=== PATIENT | female | born 1965 | race Caucasian/White ===

== ENCOUNTER 2016-09-11 19:00 | Emergency (ER) | payer BC ==
[2016-09-11] MEDS ORDERED: Sodium Chloride 0.9% 10 ML Syringe FLUSH PRN (19:32)
[2016-09-11] MEDS ORDERED: Alum Hydrox/Mag Hydrox/Simeth 15 ML, Lidocaine 2% 15 ML PO ONE ×2 (19:33)
[2016-09-11] MEDS ORDERED: LORazepam 2 MG/ML MDV IVPUSH ONE (19:36)
--- NOTE | 2016-09-11 19:36 | EDM.PDOC ---
ED HISTORY OF PRESENT ILLNESS - General Chief Complaint: Chest Pain Stated Complaint: CHEST TIGHTENING Time Seen by Provider: 09/11/16 19:26 Source: Reports: Patient, RN notes reviewed History Limitations: Reports: No limitations - History of Present Illness INITIAL COMMENTS - FREE TEXT/NARRATIVE: 50-year-old female presents emergency department day complaint of chest heaviness, she has a known history of coronary artery disease recently had a non -STEMI 2 months prior with stent one vessel. For this particular event she states she's had chest heaviness epigastric region with burning into her chest, it lasts less than a minute will come on at random times no relationship to exertion does feel short of breath with the event but this quickly resolves she is no relationship to food - Related Data Allergies/ADRs: Allergies Allergy/AdvReac Type Severity Reaction Status Date / Time Penicillins Allergy Muscle Verified 09/11/16 19:12 Aches Home Meds: Home Meds Ibuprofen [Motrin] 800 mg PO QID PRN 07/12/13 [History] Aspirin [Aspirin] 81 mg PO DAILY 09/11/16 [History] Lisinopril 2.5 mg PO BID 09/11/16 [History] Metoprolol Tartrate 12.5 mg PO BID 09/11/16 [History] Ticagrelor [Brilinta] 90 mg PO BID 09/11/16 [History] atorvaSTATin [Lipitor] 40 mg PO BEDTIME 09/11/16 [History] Past Medical History HEENT History: Reports: Impaired vision Cardiovascular History: Reports: CAD, [place], Stents, Other (see below) Other Cardiovascular History: 1 stent placed bilateral legs. 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: Musculoskeletal History: Reports: Arthritis, Fracture, Other (see below) Other Musculoskeletal History: Broke right arm, tore rotator cuff, nerve damage Psychiatric History: Reports: Anxiety, Depression - Infectious Disease History Infectious Disease History: Reports: Chicken pox - Past Surgical History HEENT Surgical History: Reports: None Cardiovascular Surgical History: Reports: Coronary artery stent GI Surgical History: Reports: Appendectomy Female Surgical History: Reports: Tubal ligation, Other (see below) Other Female Surgeries/Procedures: reversed tubal Musculoskeletal Surgical History: Reports: None Social & Family History - Tobacco Use Smoking Status *Q: Current Every Day Smoker Years of Tobacco use: 35 Packs/Tins Daily: 0.5 - Caffeine Use Caffeine Use: Reports: Coffee - Alcohol Use Days Per Week of Alcohol Use: 0 - Recreational Drug Use Recreational Drug Use: No ED ROS GENERAL - Review of Systems Review Of Systems: See Below Constitutional: Reports: no symptoms HEENT: Reports: No symptoms Respiratory: Reports: Shortness of Breath Cardiovascular: Reports: Chest pain GI/Abdominal: Reports: No symptoms : Reports: no symptoms ED EXAM, GENERAL - Physical Exam Exam: See Below Free Text/Narrative:: General: Female, not in any distress, alert and oriented x3 HEENT: head is atraumatic normocephalic, eyes pupils equal round reactive to light, sclera clear no conjunctivitis appreciated. Ears tympanic membranes clear and wong landmarks and light reflex are present bilaterally canals are clear. Nose no septal deviation, nares are clear, no blood present. Mouth mucosa is moist and pink no erythema or exudate noted in soft palate, tongue is midline uvula is midline, dentition is intact. Neck: Supple no thyromegaly no tracheal deviation. Nodes: Cervical nodes subclavicular nodes nontender no palpable lymphadenopathy noted. Lungs: clear to auscultation bilaterally with symmetrical respirations, no adventitious noise appreciated. CV: Regular rate and rhythm S1 and S2 appreciated no murmurs rubs or gallops noted. Abdomen: Soft, nontender, no palpable masses or organomegaly appreciated, no distention no guarding bowel sounds are present, . Neuro: Cranial nerves II through XII grossly intact Skin: Warm and dry, intact Extremities: No lower extremity edema appreciated . Course - Vital Signs Last Recorded V/S: Last Vital Signs Temp 96.7 F 09/11/16 20:26 Pulse 70 09/11/16 20:26 Resp 17 09/11/16 20:26 BP 110/68 09/11/16 20:26 Pulse Ox 96 09/11/16 20:26 - Orders/Labs/Meds Orders: Active Orders 24 hr Category Date Time Status Cardiac Monitoring [RC] .As Directed Care 09/11/16 19:32 Active EKG Documentation Completion [RC] ASDIRECTED Care 09/11/16 19:33 Active Peripheral IV Care [RC] . DIRECTED Care 09/11/16 19:33 Active Chest 1V Frontal [CR] Stat Exams 09/11/16 19:33 Taken Sodium Chloride 0.9% [Saline Flush] Med 09/11/16 19:32 Active 10 ml FLUSH ASDIRECTED PRN Peripheral IV Insertion Adult [OM.PC] Stat Oth 09/11/16 19:32 Ordered Saline Lock Insert [OM.PC] Stat Oth 09/11/16 19:32 Ordered EKG 12 Lead [EK] Stat Ther 09/11/16 19:33 Ordered Medication Orders Sodium Chloride (Saline Flush) 10 ml FLUSH ASDIRECTED PRN PRN Reason: Keep Vein Open Last Admin: 09/11/16 19:51 Dose: 10 ml Labs: Laboratory Tests 09/11/16 09/11/16 Range/Units 19:43 19:43 WBC 8.1 (4.5-11.0) K/uL RBC 4.25 (3.30-5.50) M/uL Hgb 13.2 (12.0-15.0) g/dL Hct 38.0 (36.0-48.0) % MCV 89 (80-98) fL MCH 31 (27-31) pg MCHC 35 (32-36) % Plt Count 254 (150-400) K/uL Neut % (Auto) 57 (36-66) % Lymph % (Auto) 29 (24-44) % [place] % (Auto) 12 H (2-6) % Eos % (Auto) 2 (2-4) % Baso % (Auto) 1 (0-1) % Sodium 141 (140-148) mmol/L Potassium 4.0 (3.6-5.2) mmol/L Chloride 107 (100-108) mmol/L Carbon Dioxide 28 (21-32) mmol/L Anion Gap 6.5 (5.0-14.0) mmol/L BUN 12 (7-18) mg/dL Creatinine 0.8 (0.6-1.0) mg/dL Est Cr Clr Drug Dosing 75.70 mL/min Estimated GFR (MDRD) > 60 (>60) Glucose 103 (74-106) mg/dL Calcium 8.7 (8.5-10.1) mg/dL Total Bilirubin 0.3 (0.2-1.0) mg/dL AST 13 L (15-37) U/L ALT 24 (12-78) U/L Alkaline Phosphatase 75 (46-116) U/L CK-MB (CK-2) 0.7 (0-3.6) mg/mL Troponin I < 0.017 (0.000-0.056) ng/mL Total Protein 6.7 (6.4-8.2) g/dL Albumin 3.5 (3.4-5.0) g/dL Globulin 3.2 (2.3-3.5) g/dL Albumin/Globulin Ratio 1.1 L (1.2-2.2) Meds: Medications Generic Name Dose Route Start Last Admin Trade Name Freq PRN Reason Stop Dose Admin Sodium Chloride 10 ml 09/11/16 19:32 09/11/16 19:51 Saline Flush FLUSH 10 ml ASDIRECTED PRN Administration Keep Vein Open Discontinued Medications Generic Name Dose Route Start Last Admin Trade Name Freq PRN Reason Stop Dose Admin Al Hydroxide/Mg Hydroxide 15 0 ml 09/11/16 19:33 09/11/16 19:46 ml/ Lidocaine HCl 15 ml PO 09/11/16 19:34 30 ml ONETIME ONE Administration Lorazepam 1 mg 09/11/16 19:36 09/11/16 19:47 Ativan IVPUSH 09/11/16 19:37 1 mg ONETIME ONE Administration - Re-Assessments/Exams Free Text/Narrative Re-Assessment/Exam: 09/11/16 20:37 ILANA score is 2, heart score is 3, complete relief of chest discomfort with a GI cocktail and Ativan Departure - Departure Time of Disposition: 20:44 Disposition: Home, Self-Care 01 Condition: good Clinical Impression: Atypical chest pain Referrals: PCP,None [Primary Care Provider] - Forms: ED Department Discharge Additional Instructions: Please followup with your primary care provider in 2-3 days if not better, please call return to the emergency department with worsening of symptoms. - My Orders Last 24 Hours: My Active Orders 09/11/16 19:32 Cardiac Monitoring [RC] .As Directed Sodium Chloride 0.9% [Saline Flush] 10 ml FLUSH ASDIRECTED PRN Peripheral IV Insertion Adult [OM.PC] Stat Saline Lock Insert [OM.PC] Stat 09/11/16 19:33 EKG Documentation Completion [RC] ASDIRECTED Peripheral IV Care [RC] . DIRECTED Chest 1V Frontal [CR] Stat EKG 12 Lead [EK] Stat - Assessment/Plan Last 24 Hours: My Active Orders 09/11/16 19:32 Cardiac Monitoring [RC] .As Directed Sodium Chloride 0.9% [Saline Flush] 10 ml FLUSH ASDIRECTED PRN Peripheral IV Insertion Adult [OM.PC] Stat Saline Lock Insert [OM.PC] Stat 09/11/16 19:33 EKG Documentation Completion [RC] ASDIRECTED Peripheral IV Care [RC] . DIRECTED Chest 1V Frontal [CR] Stat EKG 12 Lead [EK] Stat Plan: Assessment Acuity = acute Site and laterality = epigastric pain complicated patient with known history of coronary artery disease Etiology = suspicious for anxiety component Manifestations = none Location of injury = home Lab values = CBC, CMP, troponin, chest x-ray I did review films myself I cannot appreciate any acute process, the official read from radiology is pending, EKG showed no acute process no ST changes Plan I did review lab work chest x-ray and EKG results with her reviewing her ILANA score and her heart score feels she is low risk I did offer her a followup troponin in a couple of hours she declined she would like to go home and return to the ED if she gets any chest pain. She had complete resolution of her chest pain combination Ativan and GI cocktail. She is going to establish with a primary care provider in town followup to 2-3 days if no improvement or Patient was in agreement with the plan all questions were answered, they were instructed to return to the emergency department or call for worsening symptoms. This note was dictated using [employer] voice recognition software please call with any questions.
[2016-09-11 20:27] VITALS: BP 110/68
--- NOTE | 2016-09-12 08:59 | CR ---
Chest 1V Frontal FINDINGS: The heart and vascular structures are normal in appearance. No infiltrates or effusions ar e demonstrated. The skeletal structures are unremarkable. IMPRESSION: Negative exam.
== END 2016-09-11 20:53 | disposition home or self-care (01) ==
LOC: JP.ED 19:00
DX: R07.89 Other chest pain (principal); I25.10 Atherosclerotic heart disease of native coronary artery without angina pectoris; I25.2 Old myocardial infarction; F41.9 Anxiety disorder, unspecified; F32.9 Major depressive disorder, single episode, unspecified; F17.210 Nicotine dependence, cigarettes, uncomplicated; Z79.82 Long term (current) use of aspirin; Z79.899 Other long term (current) drug therapy; Z95.5 Presence of coronary angioplasty implant and graft; Z90.49 Acquired absence of other specified parts of digestive tract; Z98.51 Tubal ligation status; Z88.0 Allergy status to penicillin
CPT/HCPCS: 36415; 71010; 80053; 82553; 84484; 85025; 93005; 96374; 99285; A9270; J2060; J7050

== ENCOUNTER 2017-02-14 13:40 | Emergency (ER) | payer BC, OTHER ==
[2017-02-14 13:53] VITALS: BP 117/69
[2017-02-14] MEDS ORDERED: Aspirin 81 MG Tab.Chew PO ONE (13:54)
--- NOTE | 2017-02-14 13:55 | EDM.PDOC ---
ED HPI GENERAL MEDICAL PROBLEM - General Chief Complaint: Chest Pain Stated Complaint: CHEST PAIN Time Seen by Provider: 02/14/17 13:54 Source of Information: Reports: Patient - History of Present Illness INITIAL COMMENTS - FREE TEXT/NARRATIVE: 51-year-old female with known coronary artery disease who had an AL and a stent earlier this year woke this morning and while getting ready for work had a brief 1-2 minutes sharp pain in the left anterior lower chest. It's been waxing and waning all morning, unrelated to activity and she has no shortness of breath , nausea or vomiting or radiation of the pain. She made a comment about it at work and they sent her over to be evaluated. She admits she still has a very slight dull discomfort in the area. Onset: Sudden Duration: Minutes: (Pain is 1-2 minutes initially) Severity: Mild Improves with: Reports: None Worsens with: Reports: None Associated Symptoms: Reports: Other (Cleaned her blood pressure was "low" at the clinic) Left Chest Pain Score (Numeric/FACES): 7 - Related Data Allergies Allergy/AdvReac Type Severity Reaction Status Date / Time Penicillins Allergy Muscle Verified 02/14/17 13:53 Aches Home Meds: Home Meds Ibuprofen [Motrin] 800 mg PO QID PRN 07/12/13 [History] Aspirin [Aspirin] 81 mg PO DAILY 09/11/16 [History] Lisinopril 2.5 mg PO BID 09/11/16 [History] Metoprolol Tartrate 12.5 mg PO BID 09/11/16 [History] Ticagrelor [Brilinta] 90 mg PO BID 09/11/16 [History] atorvaSTATin [Lipitor] 40 mg PO BEDTIME 09/11/16 [History] Past Medical History HEENT History: Reports: Impaired Vision Cardiovascular History: Reports: CAD, AL, Stents, Other (See Below) Other Cardiovascular History: 1 stent placed bilateral legs. June 2016 Gastrointestinal History: Reports: None [employer] History: Reports: Musculoskeletal History: Reports: Arthritis, Fracture, Other (See Below) Other Musculoskeletal History: Broke right arm, tore rotator cuff, nerve damage Psychiatric History: Reports: Anxiety, Depression - Infectious Disease History Infectious Disease History: Reports: Chicken Pox - Past Surgical History Cardiovascular Surgical History: Reports: Coronary Artery Stent Female Surgical History: Reports: Tubal Ligation, Other (See Below) Social & Family History - Tobacco Use Smoking Status *Q: Current Every Day Smoker Years of Tobacco use: 35 Packs/Tins Daily: 0.5 - Caffeine Use Caffeine Use: Reports: Coffee - Alcohol Use Days Per Week of Alcohol Use: 0 - Recreational Drug Use Recreational Drug Use: No ED ROS GENERAL - Review of Systems Review Of Systems: See Below Constitutional: Denies: Fever, Chills HEENT: Reports: No Symptoms Respiratory: Denies: Shortness of Breath, Cough Cardiovascular: Reports: Chest Pain Endocrine: Denies: Fatigue GI/Abdominal: Denies: Abdominal Pain Musculoskeletal: Reports: Muscle Pain (Patient has some generalized aching after a flu vaccine she received yesterday) Neurological: Denies: Headache ED EXAM, GENERAL - Physical Exam Exam: See Below Exam Limited By: No Limitations General Appearance: Alert, No Apparent Distress Eye Exam: Bilateral Eye: EOMI Head: Atraumatic Respiratory/Chest: No Respiratory Distress, Lungs Clear Cardiovascular: Regular Rate, Rhythm GI/Abdominal: Soft, Non-Tender Extremities: Normal Inspection. No: Pedal Edema Neurological: Alert, Oriented Psychiatric: Normal Affect, Normal Mood Skin Exam: Warm, Dry EKG INTERPRETATION Rhythm: NSR ST-T: Normal Course - Vital Signs Last Recorded V/S: Last Vital Signs Temp 99.4 F 02/14/17 13:45 Pulse 80 02/14/17 13:45 Resp 15 02/14/17 13:45 BP 117/69 02/14/17 13:45 Pulse Ox 97 02/14/17 13:45 - Orders/Labs/Meds Orders: Active Orders 24 hr Category Date Time Status EKG Documentation Completion [RC] ASDIRECTED Care 02/14/17 13:54 Active EKG 12 Lead [EK] Routine Ther 02/14/17 13:54 Ordered Labs: Laboratory Tests 02/14/17 02/14/17 Range/Units 14:08 14:08 WBC 7.4 (4.5-11.0) K/uL RBC 4.26 (3.30-5.50) M/uL Hgb 13.2 (12.0-15.0) g/dL Hct 38.5 (36.0-48.0) % MCV 90 (80-98) fL MCH 31 (27-31) pg MCHC 34 (32-36) % Plt Count 282 (150-400) K/uL Neut % (Auto) 64 (36-66) % Lymph % (Auto) 21 L (24-44) % [place] % (Auto) 11 H (2-6) % Eos % (Auto) 3 (2-4) % Baso % (Auto) 1 (0-1) % Sodium 144 (140-148) mmol/L Potassium 4.2 (3.6-5.2) mmol/L Chloride 108 (100-108) mmol/L Carbon Dioxide 28 (21-32) mmol/L Anion Gap 8.0 (5.0-14.0) mmol/L BUN 9 (7-18) mg/dL Creatinine 0.7 (0.6-1.0) mg/dL Est Cr Clr Drug Dosing 85.56 mL/min Estimated GFR (MDRD) > 60 (>60) Glucose 102 (74-106) mg/dL Calcium 8.7 (8.5-10.1) mg/dL Troponin I < 0.017 (0.000-0.056) ng/mL Meds: Medications Discontinued Medications Generic Name Dose Route Start Last Admin Trade Name Freq PRN Reason Stop Dose Admin Aspirin 324 mg 02/14/17 13:54 02/14/17 13:57 Aspirin PO 02/14/17 13:55 324 mg ONETIME ONE Administration - Re-Assessments/Exams Free Text/Narrative Re-Assessment/Exam: 02/14/17 15:02 Initial EKG was normal, she was given 4 baby aspirin, CBC BMP and troponin were obtained. Patient remained comfortable and stable, all labs returned reassuring with a troponin of 0. She was discharged pain-free. She will return if symptoms recur or she develops other concerns. Departure - Departure Time of Disposition: 15:12 Disposition: Home, Self-Care 01 Condition: Good Clinical Impression: Atypical chest pain - Discharge Information Instructions: Nonspecific Chest Pain, [id number] Referrals: PCP,None [Primary Care Provider] - Forms: ED Department Discharge Care Plan Goals: Continue with your regular medications, return anytime if worsening or concerns. Stay hydrated. - My Orders Last 24 Hours: My Active Orders 02/14/17 13:54 EKG Documentation Completion [RC] ASDIRECTED EKG 12 Lead [EK] Routine - Assessment/Plan Last 24 Hours: My Active Orders 02/14/17 13:54 EKG Documentation Completion [RC] ASDIRECTED EKG 12 Lead [EK] Routine
== END 2017-02-14 15:13 | disposition home or self-care (01) ==
LOC: JP.ED 13:40
DX: R07.89 Other chest pain (principal); I25.2 Old myocardial infarction; I25.10 Atherosclerotic heart disease of native coronary artery without angina pectoris; M19.90 Unspecified osteoarthritis, unspecified site; F17.210 Nicotine dependence, cigarettes, uncomplicated; F32.9 Major depressive disorder, single episode, unspecified; Z95.5 Presence of coronary angioplasty implant and graft; Z98.51 Tubal ligation status; Z79.82 Long term (current) use of aspirin; Z79.899 Other long term (current) drug therapy; Z88.0 Allergy status to penicillin
CPT/HCPCS: 36415; 80048; 84484; 85025; 93005; 99285; A9270

== ENCOUNTER 2017-12-10 21:14 | Emergency (ER) | payer BC, OTHER ==
[2017-12-10 22:40] VITALS: BP 138/78
--- NOTE | 2017-12-10 23:22 | EDM.PDOC ---
ED HPI GENERAL MEDICAL PROBLEM - General Chief Complaint: ENT Problem Stated Complaint: SORE THROAT Time Seen by Provider: 12/10/17 21:31 Source of Information: Reports: Patient, RN Notes Reviewed History Limitations: Reports: No Limitations - History of Present Illness INITIAL COMMENTS - FREE TEXT/NARRATIVE: 52-year-old female presents emergency department today complaint of sore throat , she states he's had sore throat for the last 5 hours she describes no fevers no nausea vomiting no cough no other symptoms Throat Pain Score (Numeric/FACES): 8 - Related Data Allergies Allergy/AdvReac Type Severity Reaction Status Date / Time Penicillins Allergy Muscle Verified 02/14/17 13:53 Aches Home Meds: Home Meds Aspirin 81 mg PO DAILY 09/11/16 [History] Lisinopril 2.5 mg PO BID 09/11/16 [History] Metoprolol Tartrate 12.5 mg PO BID 09/11/16 [History] Ticagrelor [Brilinta] 90 mg PO BID 09/11/16 [History] atorvaSTATin [Lipitor] 40 mg PO BEDTIME 09/11/16 [History] Past Medical History HEENT History: Reports: Impaired Vision Cardiovascular History: Reports: CAD, AL, Stents, Other (See Below) Other Cardiovascular History: 1 stent placed bilateral legs. June 2016 Gastrointestinal History: Reports: None [employer] History: Reports: Musculoskeletal History: Reports: Arthritis, Fracture, Other (See Below) Other Musculoskeletal History: Broke right arm, tore rotator cuff, nerve damage Psychiatric History: Reports: Anxiety, Depression - Infectious Disease History Infectious Disease History: Reports: Chicken Pox - Past Surgical History Cardiovascular Surgical History: Reports: Coronary Artery Stent GI Surgical History: Reports: Appendectomy Female Surgical History: Reports: Tubal Ligation, Other (See Below) Other Female Surgeries/Procedures: tubal reversed due to symptoms Social & Family History - Tobacco Use Smoking Status *Q: Current Some Day Smoker Years of Tobacco use: 36 Packs/Tins Daily: 0.5 Used Tobacco, but Quit: No - Caffeine Use Caffeine Use: Reports: Coffee - Recreational Drug Use Recreational Drug Use: No ED ROS ENT - Review of Systems Review Of Systems: See Below Constitutional: Reports: No Symptoms HEENT: Reports: Throat Pain. Denies: Throat Swelling Respiratory: Reports: No Symptoms Cardiovascular: Reports: No Symptoms ED EXAM, ENT - Physical Exam Exam: See Below Exam Limited By: No Limitations General Appearance: Alert, WD/WN, No Apparent Distress Ears: Normal External Exam, Normal Canal, Hearing Grossly Normal, Normal TMs Nose: Normal Inspection, Normal Mucousa, No Blood Mouth/Throat: Normal Inspection, Normal Gums, Normal Lips, Normal Oropharynx, Normal Teeth Head: Atraumatic, Normocephalic Neck: Normal Inspection, Supple, Non-Tender, Full Range of Motion Respiratory/Chest: No Respiratory Distress, Lungs Clear, Normal Breath Sounds, No Accessory Muscle Use, Chest Non-Tender Cardiovascular: Regular Rate, Rhythm, No Murmur Course - Vital Signs Last Recorded V/S: Last Vital Signs Temp 96.4 F 12/10/17 22:38 Pulse 69 12/10/17 22:38 Resp 16 12/10/17 22:38 BP 138/78 12/10/17 22:38 Pulse Ox 99 12/10/17 22:38 - Orders/Labs/Meds Orders: Active Orders 24 hr Category Date Time Status CULTURE STREP A CONFIRMATION [] Stat Lab 12/10/17 22:42 Results STREP SCRN A RAPID W CULT CONF [RM] Stat Lab 12/10/17 22:42 Ordered Departure - Departure Time of Disposition: 23:21 Disposition: Home, Self-Care 01 Condition: Good Clinical Impression: Pharyngitis Qualifiers: Pharyngitis/tonsillitis etiology: other specified organisms Qualified Code(s): J02.8 - Acute pharyngitis due to other specified organisms - Discharge Information Referrals: PCP,None [Primary Care Provider] - Additional Instructions: Continue to do symptomatic care, Please followup with your primary care provider in 3-5 days if not better, please call return to the emergency department with worsening of symptoms. - Assessment/Plan Plan: Assessment Acuity = acute Site and laterality = pharyngitis Etiology = probable viral in nature Manifestations = none Location of injury = Home Lab values = rapid strep is negative cultures pending Plan Recommend symptomatic care, follow-up primary care 3-5 days if no improvement This note was dictated using [employer] voice recognition software please call with any questions on syntax or grammar.
== END 2017-12-10 23:39 | disposition home or self-care (01) ==
LOC: JP.ED 21:14
DX: J02.9 Acute pharyngitis, unspecified (principal); F17.210 Nicotine dependence, cigarettes, uncomplicated; Z88.0 Allergy status to penicillin; Z79.82 Long term (current) use of aspirin
CPT/HCPCS: 87081; 87430; 99283

== ENCOUNTER 2019-07-03 02:32 | Emergency (ER) | payer BC ==
[2019-07-03 03:03] VITALS: BP 122/78; PULSE 81
[2019-07-03] MEDS ORDERED: Iopamidol 612 MG/ML 100 ML Bottle IV STA (04:03)
[2019-07-03] MEDS ORDERED: Sodium Chloride 0.9% 100 ML IV STA (04:04)
--- NOTE | 2019-07-03 04:06 | EDM.PDOC ---
ED HPI GENERAL MEDICAL PROBLEM - General Chief Complaint: Abdominal Pain Stated Complaint: ABD PAIN Time Seen by Provider: 07/03/19 03:50 Source of Information: Reports: Patient, Family History Limitations: Reports: No Limitations - History of Present Illness INITIAL COMMENTS - FREE TEXT/NARRATIVE: 53-year-old female has been having ongoing abdominal pain for the past 3 weeks, being worked up at [facility] in [place]. She had an appointment with her physician 2 days ago and had numerous labs, all normal and had a gallbladder ultrasound yesterday which was normal. They were going to call her with a scheduled CT scan, but tonight she had upper abdominal pain and vomited several times so came in to be seen. She feels better now but is still having some discomfort. No fevers or chills, no diarrhea. Onset: Unknown/Unsure (At least 3 weeks) Location: Reports: Abdomen, Back (Radiates into her back) Quality: Reports: Ache, Pressure Associated Symptoms: Reports: Loss of Appetite, Nausea/Vomiting. Denies: Confusion, Chest Pain, Cough, Fever/Chills, Shortness of Breath Right Upper Abdomen Pain Score (Numeric/FACES): 7 - Related Data Allergies Allergy/AdvReac Type Severity Reaction Status Date / Time Penicillins Allergy Muscle Verified 02/14/17 13:53 Aches Home Meds: Home Meds Aspirin 81 mg PO DAILY 09/11/16 [History] Lisinopril 2.5 mg PO BID 09/11/16 [History] Metoprolol Tartrate 25 mg PO BID 09/11/16 [History] Cholecalciferol (Vitamin D3) [Vitamin D3] 1,000 unit PO DAILY 07/03/19 [History] Clopidogrel Bisulfate [Clopidogrel] 75 mg PO DAILY 07/03/19 [History] Ezetimibe [Zetia] 10 mg PO DAILY 07/03/19 [History] Multivitamin [One Daily Multivitamin] 1 each PO DAILY 07/03/19 [History] Nitroglycerin 0.4 mg SL ASDIRECTED 07/03/19 [History] Varenicline [Chantix] 1 mg PO DAILY 07/03/19 [History] hydrOXYzine HCL [hydrOXYzine] 25 mg PO DAILY 07/03/19 [History] Past Medical History HEENT History: Reports: Impaired Vision Cardiovascular History: Reports: CAD, CT, Stents, Other (See Below) Other Cardiovascular History: 1 stent placed bilateral legs. 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: Musculoskeletal History: Reports: Arthritis, Fracture, Other (See Below) Other Musculoskeletal History: Broke right arm, tore rotator cuff, nerve damage Psychiatric History: Reports: Anxiety, Depression - Infectious Disease History Infectious Disease History: Reports: Chicken Pox - Past Surgical History Cardiovascular Surgical History: Reports: Coronary Artery Stent GI Surgical History: Reports: Appendectomy Female Surgical History: Reports: Tubal Ligation, Other (See Below) Other Female Surgeries/Procedures: tubal reversed due to symptoms Social & Family History - Family History Family Medical History: Noncontributory - Tobacco Use Smoking Status *Q: Current Every Day Smoker Years of Tobacco use: 40 Packs/Tins Daily: 0.7 - Caffeine Use Caffeine Use: Reports: Coffee - Recreational Drug Use Recreational Drug Use: No ED ROS GENERAL - Review of Systems Review Of Systems: See Below Constitutional: Denies: Fever, Chills Respiratory: Denies: Shortness of Breath, Hemoptysis Cardiovascular: Denies: Chest Pain GI/Abdominal: Reports: Abdominal Pain, Nausea, Vomiting. Denies: Constipation, Diarrhea Musculoskeletal: Reports: Back Pain Skin: Reports: No Symptoms Neurological: Denies: Headache Psychiatric: Reports: No Symptoms ED EXAM, GI/ABD - Physical Exam Exam: See Below Exam Limited By: No Limitations General Appearance: Alert, No Apparent Distress Eyes: Bilateral: Normal Appearance (No jaundice) Respiratory/Chest: No Respiratory Distress, Lungs Clear Cardiovascular: Regular Rate, Rhythm GI/Abdominal Exam: Soft, Tender (Does react with some tenderness to palpation in the right upper quadrant but no focal guarding or rebound) Neurological: Alert, Oriented Psychiatric: Normal Affect, Normal Mood Skin Exam: Warm, Dry Course - Vital Signs Last Recorded V/S: Last Vital Signs Temp 96.7 F L 07/03/19 02:55 Pulse 81 07/03/19 02:55 Resp 14 07/03/19 02:55 BP 122/78 07/03/19 02:55 Pulse Ox 98 07/03/19 02:55 - Orders/Labs/Meds Meds: Medications Discontinued Medications Generic Name Dose Route Start Last Admin Trade Name Freq PRN Reason Stop Dose Admin Sodium Chloride 100 mls @ 3.5 mls/sec 07/03/19 04:04 07/03/19 04:37 Normal Saline IV 07/03/19 04:05 3.5 mls/sec ASDIRECTED STA Administration Iopamidol 100 ml 07/03/19 04:03 07/03/19 04:37 Isovue-300 (61%) IV 07/03/19 04:04 100 ml . DIRECTED STA Administration - Re-Assessments/Exams Free Text/Narrative Re-Assessment/Exam: 07/03/19 04:05 Reviewed all her [facility] labs and ultrasound from the last [address] of the abdomen and pelvis with IV contrast was ordered. 07/03/19 05:16 Patient rested quietly, no nausea or vomiting while waiting for CT report. CT was negative. I recommended 40 mg of omeprazole daily for 1 week, then 20 mg daily for 3 additional weeks and recheck with her primary provider if not improving satisfactorily. Departure - Departure Time of Disposition: 05:20 Disposition: Home, Self-Care 01 Clinical Impression: Abdominal pain Qualifiers: Abdominal location: upper abdomen, unspecified Qualified Code(s): R10.10 - Upper abdominal pain, unspecified - Discharge Information Instructions: Abdominal Pain, Adult, [id number] Referrals: Gala Christopher MD [Primary Care Provider] - Forms: ED Department Discharge Care Plan Goals: Try 40 mg of omeprazole daily for 7 days, then 20 mg daily for an additional 3 weeks. A bland diet may help as well. Recheck at any time if worsening despite treatment, or consider rechecking in 2 to 3 weeks to discuss further testing if not improving satisfactorily. Sepsis Event Note - Evaluation Sepsis Screening Result: No Definite Risk - Focused Exam Date Exam was Performed: 07/03/19 Time Exam was Performed: 17:26
--- NOTE | 2019-07-03 05:09 | CRLCT ---
INDICATION: Right upper abdominal pain TECHNIQUE: CT Abdomen and pelvis with i.v. contrast. Coronal and sagittal reformats were obtained. CONTRAST: 100 mL Isovue 300 COMPARISON: None FINDINGS: Lower chest: Unremarkable. Liver: Unremarkable. Spleen: Unremarkable. Pancreas: Unremarkable. Gallbladder: Unremarkable. Kidney: Unremarkable. No kidney or ureteral stones or obstruction seen. Adrenal: Unremarkable. Bowel: Moderate amount of stool is present throughout the colon which may be due to chronic constipation. Mild gaseous distention is seen in the superior turn in the sigmoid colon. The appendix is identified. Vascular: Metallic stents are present within the common iliac arteries bilaterally. Lymph: Unremarkable. Peritoneum: Unremarkable. No pneumoperitoneum is seen. No significant ascites is noted. Pelvis: Unremarkable. Soft tissue: Unremarkable. Bone: Unremarkable for age. IMPRESSION: 1. Unremarkable with no CT correlate for the patient`s symptoms seen. Dictated by Dinh Diaz MD @ 07/03/2019 5:06:44 AM Please note that all CT scans at this facility use dose modulation, iterative reconstruction, and/or weight-based dosing when appropriate to reduce radiation dose to as low as reasonably achievable. Dictated by: Dinh Diaz MD @ 07/03/2019 05:07:08 (Electronically Signed)
== END 2019-07-03 05:25 | disposition home or self-care (01) ==
LOC: JP.ED 02:32
DX: R10.11 Right upper quadrant pain (principal); I25.10 Atherosclerotic heart disease of native coronary artery without angina pectoris; I25.2 Old myocardial infarction; F17.210 Nicotine dependence, cigarettes, uncomplicated; Z88.0 Allergy status to penicillin; Z79.82 Long term (current) use of aspirin; Z95.5 Presence of coronary angioplasty implant and graft; Z79.02 Long term (current) use of antithrombotics/antiplatelets; Z79.899 Other long term (current) drug therapy
CPT/HCPCS: 74177; 99284; J7050; Q9967

== ENCOUNTER 2020-11-01 10:19 | Emergency (ER) | payer SELFPAY ==
[2020-11-01 10:22] VITALS: BP 153/70; PULSE 77
[2020-11-01] MEDS ORDERED: Ketorolac 60 MG/2 ML SDV IM ONE (10:43)
[2020-11-01] MEDS ORDERED: Ondansetron 4 MG Tab.DIS PO ONE (10:43)
--- NOTE | 2020-11-01 10:46 | EDM.PDOC ---
ED HPI GENERAL MEDICAL PROBLEM - General Chief Complaint: Abdominal Pain Stated Complaint: MEDICAL [facility] Time Seen by Provider: 11/01/20 10:40 Source of Information: Reports: Patient, RN Notes Reviewed History Limitations: Reports: No Limitations - History of Present Illness INITIAL COMMENTS - FREE TEXT/NARRATIVE: 54-year-old female presents emergency department today complaint of right flank pain, she states it came on suddenly this morning it does get very intense and relaxes no history of kidney stones had a normal bowel movement this morning does have a history of appendicitis no fever - Related Data Allergies Allergy/AdvReac Type Severity Reaction Status Date / Time Penicillins Allergy Muscle Verified 11/01/20 10:22 Aches Home Meds: Home Meds Aspirin 81 mg PO DAILY 09/11/16 [History] Lisinopril 2.5 mg PO BID 09/11/16 [History] Metoprolol Tartrate 25 mg PO BID 09/11/16 [History] Cholecalciferol (Vitamin D3) [Vitamin D3] 5,000 unit PO DAILY 07/03/19 [History] Clopidogrel Bisulfate [Clopidogrel] 75 mg PO DAILY 07/03/19 [History] Multivitamin [One Daily Multivitamin] 1 each PO DAILY 07/03/19 [History] Nitroglycerin 0.4 mg SL ASDIRECTED 07/03/19 [History] hydrOXYzine HCL [hydrOXYzine] 25 mg PO DAILY 07/03/19 [History] Clopidogrel [Plavix] 75 mg PO DAILY 11/01/20 [History] DULoxetine [Cymbalta] 60 mg PO DAILY 11/01/20 [History] Pregabalin [Lyrica] 75 mg PO BID 11/01/20 [History] Venlafaxine [Effexor] 37.5 mg PO DAILY 11/01/20 [History] hydrOXYzine HCL [Atarax] 10 mg PO Q6H PRN 11/01/20 [History] Past Medical History HEENT History: Reports: Impaired Vision Cardiovascular History: Reports: CAD, [place], Stents, Other (See Below) Other Cardiovascular History: 1 stent placed bilateral legs. 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: Musculoskeletal History: Reports: Arthritis, Fracture, Other (See Below) Other Musculoskeletal History: Broke right arm, tore rotator cuff, nerve damage Psychiatric History: Reports: Anxiety, Depression Endocrine/Metabolic History: Reports: Obesity/BMI 30+ - Infectious Disease History Infectious Disease History: Reports: Chicken Pox - Past Surgical History Head Surgeries/Procedures: Reports: None HEENT Surgical History: Reports: None Cardiovascular Surgical History: Reports: Coronary Artery Stent GI Surgical History: Reports: Appendectomy Female Surgical History: Reports: Tubal Ligation, Other (See Below) Other Female Surgeries/Procedures: tubal reversed due to symptoms Endocrine Surgical History: Reports: None Musculoskeletal Surgical History: Reports: None Dermatological Surgical History: Reports: None Social & Family History - Family History Family Medical History: No Pertinent Family History - Tobacco Use Tobacco Use Status *Q: Current Every Day Tobacco User Years of Tobacco use: 40 Packs/Tins Daily: 0.5 Used Tobacco, but Quit: No Second Hand Smoke Exposure: No - Caffeine Use Caffeine Use: Reports: Coffee - Recreational Drug Use Recreational Drug Use: No ED ROS GENERAL - Review of Systems Review Of Systems: See Below Constitutional: Reports: No Symptoms Respiratory: Reports: No Symptoms Cardiovascular: Reports: No Symptoms GI/Abdominal: Reports: Abdominal Pain, Flatus, Nausea. Denies: Constipation, Diarrhea, Vomiting ED EXAM, GI/ABD - Physical Exam Exam: See Below Exam Limited By: No Limitations General Appearance: Alert, Mild Distress Respiratory/Chest: No Respiratory Distress, Lungs Clear, Normal Breath Sounds, No Accessory Muscle Use, Chest Non-Tender Cardiovascular: Regular Rate, Rhythm, No Murmur GI/Abdominal Exam: Normal Bowel Sounds, Soft, Guarding, Tender (Right lower quadrant) Extremities: No Pedal Edema Course - Vital Signs Last Recorded V/S: Last Vital Signs Temp 95.1 F L 11/01/20 10:27 Pulse 77 11/01/20 10:27 Resp 16 11/01/20 10:27 BP 153/70 H 11/01/20 10:27 Pulse Ox 99 11/01/20 10:27 - Orders/Labs/Meds Orders: Active Orders 24 hr Category Date Time Status UA W/MICROSCOPIC [URIN] Urgent Lab 11/01/20 10:43 Ordered Meds: Medications Discontinued Medications Generic Name Dose Route Start Last Admin Trade Name Freq PRN Reason Stop Dose Admin Ketorolac Tromethamine 60 mg 11/01/20 10:43 11/01/20 10:48 Ketorolac 60 Mg/2 Ml Sdv IM 11/01/20 10:44 60 mg ONETIME ONE Administration Ondansetron HCl 4 mg 11/01/20 10:43 11/01/20 10:48 Ondansetron 4 Mg Tab.Dis PO 11/01/20 10:44 4 mg ONETIME ONE Administration Departure - Departure Time of Disposition: 11:34 Disposition: Admitted As Inpatient 66 Condition: Fair Clinical Impression: Nephrolithiasis - Discharge Information Instructions: Kidney Stones Referrals: PCP,None [Primary Care Provider] - Forms: ED Department Discharge Additional Instructions: Use Toradol as needed for pain control continue to push fluids please follow-up with your primary care in 5 to 7 days for reevaluation medications have been faxed to [facility] Sepsis Event Note (ED) - Evaluation Sepsis Screening Result: No Definite Risk - Focused Exam Vital Signs: Vital Signs Temp Pulse Resp BP Pulse Ox 11/01/20 10:27 95.1 F L 77 16 153/70 H 99 11/01/20 10:21 95.1 F L 77 16 153/70 H 99 - My Orders Last 24 Hours: My Active Orders 11/01/20 10:43 UA W/MICROSCOPIC [URIN] Urgent - Assessment/Plan Last 24 Hours: My Active Orders 11/01/20 10:43 UA W/MICROSCOPIC [URIN] Urgent Plan: Assessment Acuity = acute Site and laterality = nephrolithiasis Etiology = unknown Manifestations = none Location of injury = Home Lab values = CT scan describes a small stone in the right ureter Plan Good relief with Toradol prescription written for Toradol 10 mg 1 tab p.o. 3 times daily as needed total #20 follow-up primary care 5 to 7 days for reeval uation This note was dictated using [employer] voice recognition software please call with any questions on syntax or grammar.
--- NOTE | 2020-11-01 11:22 | CT ---
Abdomen Pelvis wo Cont CLINICAL HISTORY: Right flank pain COMPARISON: June 2019. TECHNIQUE: Axial tomographic images are obtained from the dome of the diaphragm to the pubic symphysis without IV contrast enhancement. No oral contrast was used. The dosage reduction and iterative reconstruction techniques employed. FINDINGS: The lung bases are clear. There is a moderate size hiatal hernia. The liver is elongated and borderline enlarged. This may represent a Ivonne's lobe configuration. The gallbladder has a normal contour. The spleen has a normal size and shape. The pancreas shows no mass or inflammatory change. The adrenal glands appear normal bilaterally. The right kidney is mildly hydronephrotic. There is fullness of the right ureter. There is a punctate calcification in the mid right ureter. There is some ureteral wall thickening through the midportion. The distal right ureter has a normal caliber. Bladder is empty. The uterus is midline The aorta shows diffuse calcified plaque without aneurysm. There is no suspicious retroperitoneal adenopathy. Small intestinal configuration is nonacute. There is gas and feces throughout the colon. Appendix has been removed. IMPRESSION: Mild right-sided hydronephrosis and proximal hydroureter. There is a tiny stone in the mid right ureter. The calcification is tiny compared to ureteral size. There may be a noncalcified portion of the stone causing some obstruction. There is also some thickening of the ureteral wall and the proximal and midportion. This may be inflammation. Urothelial lesion is felt less likely but not totally excluded. Short-term follow-up CT urogram recommended
== END 2020-11-01 11:42 | disposition critical access hospital (66) ==
LOC: JP.ED 10:19
DX: N13.2 Hydronephrosis with renal and ureteral calculous obstruction (principal); I25.10 Atherosclerotic heart disease of native coronary artery without angina pectoris; I25.2 Old myocardial infarction; E66.9 Obesity, unspecified; Z88.0 Allergy status to penicillin; Z79.82 Long term (current) use of aspirin; Z79.02 Long term (current) use of antithrombotics/antiplatelets; Z95.5 Presence of coronary angioplasty implant and graft; Z68.30 Body mass index [BMI] 30.0-30.9, adult; Z72.0 Tobacco use
CPT/HCPCS: 74176; 96372; 99284; A9270; J1885

== ENCOUNTER 2021-09-14 18:20 | Emergency (ER) | payer SELFPAY ==
[2021-09-14 18:33] VITALS: BP 120/70; PULSE 93
== END 2021-09-14 19:18 | disposition home or self-care (01) ==
LOC: JP.ED 18:20
DX: N39.0 Urinary tract infection, site not specified (principal); I25.10 Atherosclerotic heart disease of native coronary artery without angina pectoris; I25.2 Old myocardial infarction; E66.9 Obesity, unspecified; Z68.31 Body mass index [BMI] 31.0-31.9, adult; Z88.0 Allergy status to penicillin; Z79.82 Long term (current) use of aspirin; Z79.02 Long term (current) use of antithrombotics/antiplatelets; Z79.899 Other long term (current) drug therapy; Z72.0 Tobacco use
CPT/HCPCS: 81001; 87086; 87088; 87186; 99283

== ENCOUNTER 2022-10-13 21:56 | Emergency (ER) | payer MEDICARE ==
[2022-10-13 23:04] VITALS: BP 137/78; PULSE 74
== END 2022-10-14 00:12 | disposition home or self-care (01) ==
LOC: JP.ED 21:56
DX: K12.0 Recurrent oral aphthae (principal); J30.2 Other seasonal allergic rhinitis; I25.10 Atherosclerotic heart disease of native coronary artery without angina pectoris; I25.2 Old myocardial infarction; E66.9 Obesity, unspecified; Z95.5 Presence of coronary angioplasty implant and graft; Z88.0 Allergy status to penicillin; Z79.82 Long term (current) use of aspirin; Z79.899 Other long term (current) drug therapy; Z79.02 Long term (current) use of antithrombotics/antiplatelets; Z72.0 Tobacco use; Z68.31 Body mass index [BMI] 31.0-31.9, adult
CPT/HCPCS: 99282

== ENCOUNTER 2023-10-08 19:56 | Emergency (ER) | payer MEDICARE ==
[2023-10-08] MEDS ORDERED: Morphine 4 MG/ML Syringe IVPUSH PRN (20:24)
[2023-10-08] MEDS: Aspirin 81 MG Tab.Chew PO ONE (20:34)
[2023-10-08] MEDS: Nitroglycerin 0.4 MG Tab.SL SL PRN (20:35)
[2023-10-08] MEDS: Sodium Chloride 0.9% 10 ML Syringe FLUSH PRN (20:37)
[2023-10-08 20:39] LABS: BASOPHILS ABSOLUTE AUTO 0.05 K/uL (0.00-0.10); BASOPHILS PERCENT AUTO 0.6 % (0.1-1.3); EOSINOPHILS ABSOLUTE AUTO 0.22 K/uL (0.00-0.40); EOSINOPHILS PERCENT AUTO 2.5 % (0.0-5.4); HEMATOCRIT 38.3 % (34.3-46.0); HEMOGLOBIN 13.8 g/dL (11.2-15.5); IMMATURE GRAN ABSOLUTE AUTO 0.03 K/uL (0.00-0.23); IMMATURE GRAN PERCENT AUTO 0.3 % (0.0-0.7); LYMPHOCYTES ABSOLUTE AUTO 1.69 K/uL (0.8-3.3); LYMPHOCYTES PERCENT AUTO 19.2 % (11.4-47.7); MEAN CORPUSCULAR HEMOGLOBIN 31.4 pg (31.6-35.5); MEAN CORPUSCULAR VOLUME 87.2 fL (81.4-99.0); MONOCYTES ABSOLUTE AUTO 0.94 K/uL (0.20-0.90); MONOCYTES PERCENT AUTO 10.7 % (3.3-12.6); NEUTROPHILS ABSOLUTE AUTO 5.87 K/uL (1.0-7.6); NEUTROPHILS PERCENT AUTO 66.7 % (40.0-78.1); PLATELET COUNT,PLT 243 K/uL (130-375); RED BLOOD CELL COUNT 4.39 M/uL (3.77-5.24); WHITE BLOOD CELL COUNT,WBC 8.8 K/uL (3.2-11.0)
[2023-10-08 20:54] VITALS: BP 116/67; PULSE 102
[2023-10-08 21:02] LABS: ANION GAP 7.9 mmol/L (5.0-14.0); CALCIUM 9.1 mg/dL (8.5-10.1); CREATININE 0.8 mg/dL (0.6-1.0); EST CRCL DRUG DOSING (CG) 69.81 mL/min; POTASSIUM,K 3.7 mmol/L (3.6-5.2); TROPONIN I HIGH SENSITIVITY 4.4 pg/mL (<=60.3)
== END 2023-10-08 21:32 | disposition home or self-care (01) ==
LOC: JP.ED 19:56
DX: R07.89 Other chest pain (principal); I25.10 Atherosclerotic heart disease of native coronary artery without angina pectoris; E78.00 Pure hypercholesterolemia, unspecified; I10 Essential (primary) hypertension; I25.2 Old myocardial infarction; F17.210 Nicotine dependence, cigarettes, uncomplicated; Z88.0 Allergy status to penicillin; Z79.82 Long term (current) use of aspirin; Z79.899 Other long term (current) drug therapy; Z86.19 Personal history of other infectious and parasitic diseases; Z95.5 Presence of coronary angioplasty implant and graft
CPT/HCPCS: 36415; 71045; 80048; 84484; 85025; 85379; 93005; 99285; A9270; J3490